=== PATIENT | male | born 1995 | race Caucasian/White ===

== ENCOUNTER 2017-10-23 23:02 | Emergency (ER) | payer OTHER ==
[~2017-10-23] VITALS: Ht 177.8 cm; Wt 67.5 kg
[2017-10-23 23:07] VITALS: TEMP 36.5; Ht 177.8 cm; Wt 67.5 kg
[2017-10-23 23:33] LABS: HEMATOCRIT 44.9 % (42-52); HEMOGLOBIN 16.2 g/dL (14.0-18.0); MEAN CELL VOLUME 84.9 fL (80-100); MEAN CORPUSCULAR HEMOGLOBIN 30.6 pg (25-34); MEAN CORPUSCULAR HGB CONC 36.1 g/dl (32-36); MEAN PLATELET VOLUME 10.5 fL (7.4-10.4); PLATELET COUNT 167 K/uL (130-400); RED CELL DISTRIBUTION WIDTH CV 12.6 % (11.5-14.5); RED CELL DISTRIBUTION WIDTH SD 38.7 fL (36.4-46.3); WHITE BLOOD COUNT 7.49 K/uL (4.8-10.8)
[2017-10-23 23:56] LABS: ALBUMIN 3.9 gm/dl (3.4-5.0); ALT/SGPT 75 U/L (12-78); BLOOD UREA NITROGEN 22 mg/dl (7-18); CALCIUM 8.7 mg/dl (8.5-10.1); CARBON DIOXIDE 21 mmol/L (21-32); CREATININE 0.92 mg/dl (0.60-1.40); GLUCOSE 85 mg/dl (70-99); POTASSIUM 3.7 mmol/L (3.5-5.1); SODIUM 138 mmol/L (136-145)
[2017-10-24 00:01] LABS: ALKALINE PHOSPHATASE 63 U/L (45-117); AST/SGOT 30 U/L (15-37); CKMB 1.1 ng/ml (0.5-3.6); TOTAL PROTEIN 7.8 gm/dl (6.4-8.2)
[2017-10-24 00:13] VITALS: BP 121/78; PULSE 78; O2SAT 99
--- NOTE | 2017-10-24 01:03 | EMERGENCY ROOM VISIT NOTE ---
History Report prepared by Chikis: Jennifer Adams Under the Supervision of: Dr. Norma Fitzpatrick D.O. First contact with patient: 23:11 Chief Complaint: CARDIAC ASSESSMENT Stated Complaint: CHEST PAIN,SOB,BILAT HAND NUMBNESS History of Present Illness The patient is a 21 year old male who presents to the Emergency Room for a cardiac assessment. The patient states that for a few weeks he has been having shortness of breath. He states that he feels like he has to gasp for breath when he breathes because it feels like his ribs are crushing his lungs. The patient states that it is more a pressure. He states that he has been feeling like his chest is tight as well. He states that he had an appointment at the [facility] today. The patient states that they did a chest x-ray and a d- dimer, both of which came back negative. He states that he came to the ED tonight because of the increased pressure on his lungs and the development of numbness in his hands. The patient complains of dizziness. The patient denies a cough, nausea, vomiting, being under increased stress, and a sore throat. The patient notes that he has had an itchy throat. The patient notes he us a smoker and states he smokes 5 cigarettes a day. He states that it used to be more and is more when he drinks. He notes that he did not drink tonight, but did last night. The patient states that he has gained weight recently, but believes it is not from exercising anymore. The nurse notes that the patient told her he has a history of anxiety and has been off his medications for some time. She also notes that he started going back to the gym 3 days ago. Source of History: patient Onset: three weeks ago Position: other (global) Quality: pressure, other (tightness) Timing: worsening Associated Symptoms: + chest pain, + numbness, No sorethroat, No cough, No nausea, No vomiting Note: The patient complains of dizziness and an itchy throat. The patient denies being under increased stress. Review of Systems See HPI for pertinent positives & negatives. A total of 10 systems reviewed and were otherwise negative. Past Medical & Surgical Anxiety Family History Patient reports no known family medical history. Social History Smoking Status: Current Every Day Smoker Alcohol Use: occasionally Drug Use: none Marital Status: single Housing Status: lives with roommate Occupation Status: [employer] student Current/Historical Medications No Active Prescriptions or Reported Meds Allergies Coded Allergies: No Known Allergies (Unverified , 07/06/16) Physical Exam Vital Signs Date Time Temp Pulse Resp B/P (MAP) Pulse Ox O2 Delivery O2 Flow Rate FiO2 10/24/17 00:13 78 20 121/78 99 Room Air 10/23/17 23:25 Room Air 10/23/17 23:24 100 Room Air 10/23/17 23:07 36.5 92 16 125/80 98 Room Air Physical Exam General: The patient is hyperventilating upon exam. HEENT: Head - normocephalic and atraumatic Pupils are equal, round, and reactive to light. Extraocular eye muscles are intact, and sclera are anicteric. Nose - moist nasal mucosa without discharge. Mouth - moist buccal mucosa. Oropharynx is nonerythematous and there is no tonsillar exudate or edema noted. Neck: Supple; no JVD, nuchal rigidity, cervical lymphadenopathy. Heart: Regular rate and rhythm. There is a normal S1 and S2 with no murmurs, clicks, or gallops appreciated. Lungs: Clear to auscultation bilaterally with no wheezes, rales, or rhonchi. Abdomen: Soft, completely nontender, nondistended, with good bowel sounds. There are no palpable pulsatile masses or hepatosplenomegaly. There is no guarding, rigidity, or rebound noted. Extremities: No evidence of cyanosis, clubbing, or edema. There are easily palpable peripheral pulses. Skin: warm and dry with good turgor and no rashes. Medical Decision & Procedures ER Provider Diagnostic Interpretation: CHEST X-RAY: The results were interpreted by me. No cardiomegaly. No pneumothorax. No consolidation. Unremarkable. Laboratory Results 10/23/17 23:20 Red Blood Count 5.29, Mean Corpuscular Volume 84.9, Mean Corpuscular Hemoglobin 30.6, Mean Corpuscular Hemoglobin Concent 36.1, Mean Platelet Volume 10.5 10/23/17 23:20 Test 10/23/17 23:20 White Blood Count 7.49 K/uL (4.8-10.8) Red Blood Count 5.29 M/uL (4.7-6.1) Hemoglobin 16.2 g/dL (14.0-18.0) Hematocrit 44.9 % (42-52) Mean Corpuscular Volume 84.9 fL (80-100) Mean Corpuscular Hemoglobin 30.6 pg (25-34) Mean Corpuscular Hemoglobin Concent 36.1 g/dl (32-36) Platelet Count 167 K/uL (130-400) Mean Platelet Volume 10.5 fL (7.4-10.4) RDW Standard Deviation 38.7 fL (36.4-46.3) RDW Coefficient of Variation 12.6 % (11.5-14.5) Neutrophils % (Manual) 23.7 % Lymphocytes % (Manual) 48.2 % Variant Lymphocytes % (manual) 19.3 % Monocytes % (Manual) 7.0 % Eosinophils % (Manual) 1.8 % Neutrophils # (Manual) 1.78 K/uL (1.4-6.5) Total Absolute Neutrophils 1.78 K/uL (1.4-6.5) Lymphocytes # (Manual) 3.61 K/uL (1.2-3.4) Absolute Variant Lymphocytes 1.45 K/uL Total Absolute Lymphocytes 5.06 K/uL (1.2-3.4) Monocytes # (Manual) 0.52 K/uL (0.11-0.59) Eosinophils # (Manual) 0.13 K/uL (0-0.5) Red Blood Cell Morphology Unremarkable D-Dimer < 190 ug/L FEU (0-500) Anion Gap 9.0 mmol/L (3-11) Est Creatinine Clear Calc Drug Dose 121.3 ml/min Estimated GFR () 137.3 Estimated GFR (Non- 118.5 BUN/Creatinine Ratio 23.5 (10-20) Calcium Level 8.7 mg/dl (8.5-10.1) Total Bilirubin 0.6 mg/dl (0.2-1) Direct Bilirubin 0.1 mg/dl (0-0.2) Aspartate Amino Transf (AST/SGOT) 30 U/L (15-37) Alanine Aminotransferase (ALT/SGPT) 75 U/L (12-78) Alkaline Phosphatase 63 U/L (45-117) Total Creatine Kinase 405 U/L (39-308) Creatine Kinase MB 1.1 ng/ml (0.5-3.6) Creatine Kinase MB Ratio 0.3 (0-3.0) Troponin I < 0.015 ng/ml (0-0.045) Total Protein 7.8 gm/dl (6.4-8.2) Albumin 3.9 gm/dl (3.4-5.0) Laboratory results per my review. ECG Per My Interpretation Indication: SOB/dyspnea Rate (beats per minute): 83 Rhythm: normal sinus Findings: no acute ischemic change, no ectopy ED Course 2313: Past medical records reviewed. The patient was evaluated in room B9. A complete history and physical exam was performed. Labs were drawn as above. I offered the patient something for anxiety but he declined. 2350: I reevaluated the patient and had a conversation about anxiety. He states that he had been taking Lexapro for a month before he stopped because it made him feel numb. He states that he over all feels well. He is no longer hyperventilating. 0015: Upon reevaluation, the patient is resting comfortably. I discussed findings and results with him. He verbalized agreement of the treatment plan. The patient was discharged home. Medical Decision The patient is a 21 year old male who presents to the Emergency Room for a cardiac assessment. Differential diagnoses include anxiety, PE, pneumothorax, pneumonia, pleurisy, costochondritis. LABS: D-dimer less than 190 Total CK 405 CKMB 1.1 Troponin less than 0.015 Normal renal function Normal glucose Normal white count Normal H&H This is a 21-year-old male patient presents to the emergency department with chest pressure and heavy breathing. On physical exam, the patient appears to be significantly anxious. He was seen at [facility] earlier today with the same symptoms. At that time, he had a normal chest x-ray and negative d-dimer. Laboratory studies here in the emergency department are unremarkable. Chest x-ray is normal. Twelve-lead EKG is normal. The patient admits that he has felt like this in the past and that when he was taking his Lexapro that the symptoms seemed better but that he felt numb all over and did not want to do his schoolwork. I have asked the patient to follow-up with the [facility] if he would like to get back on medication. He was told return here to the emergency department if he had any worsening symptoms. Medication Reconcilliation Current Medication List: was personally reviewed by me Blood Pressure Screening Patient's blood pressure: Normal blood pressure Blood pressure disposition: Did not require urgent referral Impression Primary Impression: Chest tightness Additional Impression: Anxiety Scribe Attestation The scribe's documentation has been prepared under my direction and personally reviewed by me in its entirety. I confirm that the note above accurately reflects all work, treatment, procedures, and medical decision making performed by me. Departure Information Dispostion Home / Self-Care Prescriptions No Active Prescriptions or Reported Meds Referrals No Doctor, Assigned (PCP) Forms IMPORTANT VISIT INFORMATION Patient Instructions My [facility] Additional Instructions Rest. Limit stress and anxiety. Avoid alcohol, tobacco, and marijuana Call [facility] for follow up. If you feel acutely anxious, call [facility] - You can always return to the ER if symptoms worsen. Problem Qualifiers
--- NOTE | 2017-10-24 05:42 | DIAGNOSTIC IMAGING REPORT ---
CHEST 2 VIEWS ROUTINE CLINICAL HISTORY: eval for sob dyspnea COMPARISON STUDY: 07/06/2016 FINDINGS: The bones soft tissues and hemidiaphragms are normal. The cardiomediastinal silhouette is normal. The lungs are clear. The pulmonary vasculature is normal. IMPRESSION: Negative chest. The above report was generated using voice recognition software. It may contain grammatical, syntax or spelling errors. Electronically signed by: John Membreno M.D. 10/24/2017 5:40 AM Dictated Date/Time: 10/24/2017 5:40 AM
== END 2017-10-24 00:40 | disposition home or self-care (01) ==
LOC: C.EDB 23:03
DX: R07.89 Other chest pain (principal); F41.9 Anxiety disorder, unspecified; F17.210 Nicotine dependence, cigarettes, uncomplicated